=== PATIENT | male | born 1965 | race Two or more races ===

== ENCOUNTER 2022-03-21 18:01 | Inpatient (IN) | payer MEDICAID, OTHER ==
[~2022-03-21] VITALS: Ht 167.6 cm; Wt 80.0 kg
[2022-03-21] MEDS ORDERED: MORPHINE SULFATE 4 MG/ML SYR/VIAL IV ONE (18:45)
[2022-03-21] MEDS ORDERED: SODIUM CHLORIDE 0.9% 1,000 ML IV ONE ×2 (18:45→22:15)
[2022-03-21] MEDS ORDERED: ONDANSETRON HCL 4 MG/2 ML VIAL IV ONE (18:45)
[2022-03-21 19:47] LABS: Albumin 4.6 g/dL (3.4-5.0); Calcium 9.5 mg/dL (8.5-10.1); Potassium 3.9 mmol/L (3.5-5.1)
[2022-03-21 19:50] LABS: BUN/Creatinine Ratio 15.6; Bilirubin, Total 0.6 mg/dL (0.2-1.0); Total Protein 9.5 g/dL (6.4-8.2)
[2022-03-21 19:51] LABS: Basophils # (auto) 0 10 ^3/uL (0-0.2); Basophils % (auto) 0.3 % (0.0-2.0); Eosinophils # (auto) 0 10 ^3/uL (0-0.8); Eosinophils % (auto) 0.2 % (0.0-7.0); Hematocrit 54.3 % (41.0-53.0); Hemoglobin 18.3 g/dL (13.5-17.5); Lymphocytes # (auto) 1.4 10 ^3/uL (0.4-5.4); Lymphocytes % (auto) 13.5 % (10.0-50.0); Mean Corpuscular Hemoglobin 32.2 pg (28.0-32.0); Mean Corpuscular Hgb Conc. 33.7 g/dL (32.0-36.0); Mean Corpuscular Volume 95.5 fL (80.0-100.0); Monocytes # (auto) 0.3 10 ^3/uL (0-1.3); Monocytes % (auto) 3.4 % (0.0-12.0); Neutrophils # (auto) 8.5 10 ^3/uL (1.6-8.6); Neutrophils % (auto) 82.6 % (37.0-80.0); Nucleated Red Blood Cells % 0.4 %; Red Blood Cells 5.69 10^6/uL (4.5-5.90); Red Cell Distribution Width 13.7 % (11.8-14.3); White Blood Cell 10.3 10^3/uL (4.4-10.8)
[2022-03-21] MEDS ORDERED: ONDANSETRON HCL 4 MG/2 ML VIAL IV PRN (22:15)
[2022-03-21] MEDS ORDERED: MORPHINE SULFATE INJ 2 MG/ml SYRG IV PRN ×2 (22:15)
[2022-03-21] MEDS ORDERED: NITROGLYCERIN 0.4 MG SL TAB SL PRN (22:15)
[2022-03-22] MEDS ORDERED: GASTROGRAFIN 120 ML SOL ONE (09:59)
[2022-03-22 13:44] LABS: Urine Bacteria NONE SEEN /hpf (None Seen); Urine Blood 3+ /uL (Negative); Urine Mucus MODERATE (None Seen); Urine WBC 4 /hpf (0 - 3)
[2022-03-22] MEDS ORDERED: hydrALAZINE HCL 20 MG/ML VL IV PRN (13:45)
[2022-03-22] MEDS: LISINOPRIL 20 MG TAB PO SCH (16:52)
[2022-03-22] MEDS: D5W/SOD CHL 0.45% 1,000 ML IV SCH (16:53)
[2022-03-22 17:41] VITALS: BP 145/101
[2022-03-22 20:00] VITALS: BP 152/60
[2022-03-22 22:00] VITALS: BP_SYST 123; BP_SYST 152; BP_DIAS 60; BP_DIAS 86
[2022-03-23 04:54] VITALS: BP 130/86
[2022-03-23 06:43] LABS: Potassium 3.8 mmol/L (3.5-5.1)
[2022-03-23 06:46] LABS: BUN/Creatinine Ratio 29.2
[2022-03-23 07:04] LABS: Basophils # (auto) 0 10 ^3/uL (0-0.2); Basophils % (auto) 0.7 % (0.0-2.0); Eosinophils # (auto) 0.1 10 ^3/uL (0-0.8); Eosinophils % (auto) 2.2 % (0.0-7.0); Hematocrit 50.4 % (41.0-53.0); Hemoglobin 16.8 g/dL (13.5-17.5); Lymphocytes # (auto) 2.2 10 ^3/uL (0.4-5.4); Lymphocytes % (auto) 32.9 % (10.0-50.0); Mean Corpuscular Hemoglobin 31.9 pg (28.0-32.0); Mean Corpuscular Hgb Conc. 33.3 g/dL (32.0-36.0); Mean Corpuscular Volume 95.7 fL (80.0-100.0); Monocytes # (auto) 0.5 10 ^3/uL (0-1.3); Monocytes % (auto) 8.2 % (0.0-12.0); Neutrophils # (auto) 3.7 10 ^3/uL (1.6-8.6); Nucleated Red Blood Cells % 0.1 %; Red Blood Cells 5.27 10^6/uL (4.5-5.90); Red Cell Distribution Width 13.9 % (11.8-14.3); White Blood Cell 6.5 10^3/uL (4.4-10.8)
[2022-03-23 09:00] VITALS: BP 127/83
[2022-03-23] MEDS: LISINOPRIL 20 MG TAB PO SCH (09:41)
[2022-03-23] MEDS: D5W/SOD CHL 0.45% 1,000 ML IV SCH (09:44)
[2022-03-23] MEDS ORDERED: PANTOPRAZOLE 40 MG/10 ML VIAL INJ IV SCH (10:00)
[2022-03-23] MEDS ORDERED: ENOXAPARIN SOD 40 MG/0.4 ML SYRINGE SC SCH (10:00)
[2022-03-23 13:00] VITALS: BP 117/73
[2022-03-23 16:33] VITALS: BP 127/85
[2022-03-23 18:25] VITALS: BP 127/83
== END 2022-03-23 19:10 | disposition home or self-care (01) | DRG 247 ==
LOC: ER 18:01 → EDBD 18:01 → EEVIPCON 22:17 → OVERFLOW 22:17 → WEST WING 03-22 17:05
PROVIDERS: ADMIT Internal Medicine; ATTEND Internal Medicine
DX: K56.600 Partial intestinal obstruction, unspecified as to cause (principal); I10 Essential (primary) hypertension; Z20.822 Contact with and (suspected) exposure to COVID-19
CPT/HCPCS: 36415; 74176; 74250; 80048; 80053; 80061; 81001; 83036; 83690; 85025; 87426; 93005; 96361; 96374; 96375; C9113; G0378; J2405